=== PATIENT | female | born 1960 | race Caucasian/White ===

== ENCOUNTER 2020-01-03 14:35 | Outpatient (CLI) | payer MEDICAID ==
[2020-01-03] MEDS ORDERED: PRED10TA PO (15:42)
[2020-01-03] MEDS ORDERED: CYAN500T54 PO (15:42)
[2020-01-03] MEDS ORDERED: LISI1TAB23 PO (15:42)
[2020-01-03] MEDS ORDERED: TRAM50TA2 PO (15:42)
[2020-01-03] MEDS ORDERED: LACT1CAP37 PO (15:42)
[2020-01-03] MEDS ORDERED: METF500T17 PO (15:42)
[2020-01-03] MEDS ORDERED: CETI10CA PO (15:42)
[2020-01-03] MEDS ORDERED: METH500T7 PO (15:42)
[2020-01-03] MEDS ORDERED: ICOS1CAP PO (15:42)
[2020-01-03] MEDS ORDERED: LEVO25TA4 PO (15:42)
[2020-01-03] MEDS ORDERED: GABA300C10 PO (15:42)
[2020-01-03] MEDS ORDERED: BIOT5TAB PO (15:42)
[2020-01-03] MEDS ORDERED: ASCO500T8 PO (15:42)
[2020-01-03] MEDS ORDERED: POTA99TA2 PO (15:42)
[2020-01-03] MEDS ORDERED: ALLO100T30 PO (15:42)
[2020-01-03] MEDS ORDERED: PARO20TA4 PO (15:42)
[2020-01-03] MEDS ORDERED: magnesium PO (15:42)
[2020-01-03] MEDS ORDERED: CIDE500T PO (15:42)
[2020-01-03] MEDS ORDERED: MV-M1TAB16 PO (15:42)
[2020-01-03] MEDS ORDERED: ALBU6.7H8 INH (15:42)
[2020-01-03] MEDS ORDERED: LYSI500T25 PO (15:42)
[2020-01-03] MEDS ORDERED: DICY20TA3 PO (15:42)
[2020-01-03] MEDS ORDERED: FLUT1DIS IH (15:42)
[2020-01-03] MEDS ORDERED: MULT-658 PO (15:42)
[2020-01-03] MEDS ORDERED: PANT40TA5 PO (15:42)
[2020-01-03] MEDS ORDERED: AMIT10TA PO (15:42)
[2020-01-03 15:59] LABS: BASOPHILS # (AUTO) 0.07 x10^3/uL (0-0.1); BASOPHILS % (AUTO) 0 % (0-1); EOSINOPHILS # (AUTO) 0.02 x10^3/uL (0-0.4); EOSINOPHILS % (AUTO) 0 % (1-7); LYMPHOCYTES # (AUTO) 2.98 x10^3/uL (1-3.4); LYMPHOCYTES % (AUTO) 19 % (22-44); MD NO; MEAN CORPUSCULAR HEMOGLOBIN 28.4 pg (27.0-34.8); MEAN CORPUSCULAR VOLUME 86.1 fL (80-100); MEAN PLATELET VOLUME 7.6 fL (7.4-10.4); MONOCYTES # (AUTO) 0.61 x10^3/uL (0.2-0.8); MONOCYTES % (AUTO) 4 % (2-9); NEUTROPHILS # (AUTO) 11.68 x10^3/uL (1.8-6.8); NEUTROPHILS % (AUTO) 76 % (42-75); PLATELET COUNT 600 x10^3/uL (130-400); RED BLOOD COUNT 5.06 x10^6/uL (3.82-5.3)
[2020-01-03 16:08] LABS: ALANINE AMINOTRANSFERASE 64 U/L (12-78); ALBUMIN 3.6 g/dL (3.4-5.0); ANION GAP 7 mmol/L (5-15); CALCIUM 10.1 mg/dL (8.5-10.1); CHLORIDE 104 mmol/L (98-107); CREATININE 0.95 mg/dL (0.55-1.02)
[2020-01-03 16:10] LABS: ALKALINE PHOSPHATASE 104 U/L (45-117); BILIRUBIN,TOTAL 0.3 mg/dL (0.2-1.0)
[2020-01-03 16:10] LABS: MICROSCOPIC NOT IND
[2020-01-03 16:22] LABS: INTERNATIONAL NORMALIZED RATIO 0.94 (0.93-1.1)
[2020-01-03 16:37] LABS: CULTURE INDICATED? NO
== END 2020-01-03 23:59 | disposition home or self-care (01) ==
LOC: STAR 14:35
PROVIDERS: ATTEND Neurological Surgery
DX: Z01.818 Encounter for other preprocedural examination (principal); M47.12 Other spondylosis with myelopathy, cervical region; M54.2 Cervicalgia; J98.11 Atelectasis; S13.150A Subluxation of C4/C5 cervical vertebrae, initial encounter; M47.812 Spondylosis without myelopathy or radiculopathy, cervical region; M25.78 Osteophyte, vertebrae; M48.02 Spinal stenosis, cervical region; X58.XXXA Exposure to other specified factors, initial encounter; Y93.89 Activity, other specified; Y92.89 Other specified places as the place of occurrence of the external cause; Y99.8 Other external cause status
CPT/HCPCS: 36415; 71046; 72050; 80053; 81003; 85025; 85610; 85730; 93005; U0001

== ENCOUNTER 2020-01-07 05:24 | Inpatient (IN) | payer MEDICAID ==
[~2020-01-07] VITALS: Ht 180.3 cm; Wt 154.1 kg
[2020-01-07] VITALS (7 sets, daily range): BP systolic 134–173; BP diastolic 82–98
[~2020-01-07 05:24] MED LIST: ALBU6.7H8 INH; ALLO100T30 PO; AMIT10TA PO; ASCO500T8 PO; BIOT5TAB PO; CETI10CA PO; CIDE500T PO; CYAN500T54 PO; DICY20TA3 PO; FLUT1DIS IH; GABA300C10 PO; ICOS1CAP PO; LACT1CAP37 PO; LEVO25TA4 PO; LISI1TAB23 PO; LYSI500T25 PO; METF500T17 PO; METH500T7 PO; MULT-658 PO; MV-M1TAB16 PO; PANT40TA5 PO; PARO20TA4 PO; POTA99TA2 PO; PRED10TA PO; TRAM50TA2 PO; magnesium PO
[2020-01-07] MEDS ORDERED: LACTATED RINGERS 1,000 ML IV SCH (05:43)
[2020-01-07] MEDS ORDERED: CHLORHEXIDINE 15 ML UDC MM ONE (06:00)
[2020-01-07] MEDS ORDERED: LIDOCAINE-MPF 1%, 2ML INFIL ONE (06:00)
[2020-01-07] MEDS ORDERED: BACITRACIN 50,000 UNIT ONE (07:02)
[2020-01-07] MEDS ORDERED: BUPIVACAINE/PF-EPI 0.5% 1:200K ONE (07:02)
[2020-01-07] MEDS ORDERED: FENTANYL PF 250 MCG/5ML ONE (07:11)
[2020-01-07] MEDS ORDERED: MIDAZOLAM 1 MG/ML, 2ML ONE (07:12)
[2020-01-07] MEDS ORDERED: PROPOFOL 50 ML ONE ×4 (07:18→09:19)
[2020-01-07] MEDS ORDERED: MAGNESIUM SULFATE 1 GM/2 ML ONE (07:29)
[2020-01-07] MEDS ORDERED: KETAMINE 10 MG/ML, 20ML ONE (07:29)
[2020-01-07] MEDS ORDERED: DEXAMETHASONE 4 MG/ML, 1ML ONE (07:31)
[2020-01-07] MEDS ORDERED: ROCURONIUM 10MG/ML,5ML ONE (07:31)
[2020-01-07] MEDS ORDERED: CEFAZOLIN 1,000 MG ONE (07:31)
[2020-01-07] MEDS ORDERED: LIDOCAINE-MPF 2% ,5ML ONE (07:31)
[2020-01-07] MEDS ORDERED: SUCCINYLCHOLINE 20 MG/ML, 10ML ONE (07:31)
[2020-01-07] MEDS ORDERED: ONDANSETRON 2MG/ML, 2ML IV PRN ×2 (08:30→12:30)
[2020-01-07] MEDS ORDERED: METOCLOPRAMIDE 5 MG/ML, 2ML IV PRN (08:30)
[2020-01-07] MEDS ORDERED: LABETALOL 5MG/ML, 20ML IV PRN (08:30)
[2020-01-07] MEDS ORDERED: LORazepam 2 MG/ML, 1ML IVPush PRN (08:30)
[2020-01-07] MEDS ORDERED: ACETAMINOPHEN 325 MG TABLET PO PRN (08:30)
[2020-01-07] MEDS ORDERED: ALBUTEROL/IPRATROPIUM 2.5MG/0.5MG, 3 ML NPPB PRN (08:30)
[2020-01-07] MEDS ORDERED: MEPERIDINE/PF 25MG/ML,1ML IVPush PRN (08:30)
[2020-01-07] MEDS ORDERED: FENTANYL PF 100 MCG/2ML ONE ×2 (09:42→11:34)
[2020-01-07] MEDS ORDERED: HYDROmorphone 1 MG/ML, 1ML INJ ONE (09:42)
[2020-01-07] MEDS: FENTANYL PF 100 MCG/2ML IV PRN ×5 (10:10→11:43)
[2020-01-07] MEDS: GABAPENTIN 300 MG CAPSULE PO SCH ×3 (10:15→21:04)
[2020-01-07] MEDS ORDERED: hydrALAzine 20 MG/ML, 1ML ONE (10:24)
[2020-01-07] MEDS: hydrALAzine 20 MG/ML, 1ML IV PRN ×2 (10:26→11:04)
[2020-01-07] MEDS ORDERED: METHOCARBAMOL 1,000 MG in DEXTROSE 5% 100 ML IV ONE (10:30)
[2020-01-07] MEDS ORDERED: LABETALOL 5MG/ML, 20ML ONE (11:23)
[2020-01-07] MEDS ORDERED: ACETAMINOPHEN 500 MG TABLET PO PRN (12:30)
[2020-01-07] MEDS ORDERED: BISACODYL 10 MG SUPP PR PRN (12:30)
[2020-01-07] MEDS ORDERED: DIPHENHYDRAMINE 50 MG/ML, 1ML IVPush PRN (12:30)
[2020-01-07] MEDS ORDERED: DIPHENHYDRAMINE 25 MG CAPSULE PO PRN (12:30)
[2020-01-07] MEDS ORDERED: ALBUTEROL SULFATE 2.5 MG/3 ML NPPB PRN ×3 (12:30→14:30)
[2020-01-07] MEDS ORDERED: DIPHENHYDRAMINE 50 MG/ML, 1ML IM PRN (12:30)
[2020-01-07] MEDS ORDERED: MAGNESIUM HYDROXIDE 8%, 30ML UDC PO PRN (12:30)
[2020-01-07] MEDS ORDERED: ACETAMINOPHEN 650 MG SUPP PR PRN (12:30)
[2020-01-07] MEDS: NS + 20MEQ KCL 1,000 ML IV SCH (13:34)
[2020-01-07] MEDS: CEFAZOLIN PMX 1GM/50ML 50 ML IVPB SCH (16:13)
[2020-01-07] MEDS: DICYCLOMINE 20 MG TABLET PO SCH ×2 (16:14→21:04)
[2020-01-07] MEDS: metFORMIN 500 MG TABLET PO SCH (16:14)
[2020-01-07] MEDS: METHOCARBAMOL 750 MG TABLET PO SCH (18:28)
[2020-01-07] MEDS: ADVAIR INH SCH (21:00)
[2020-01-07] MEDS ORDERED: CETIRIZINE 10 MG TABLET PO SCH (21:00)
[2020-01-07] MEDS ORDERED: BUDESONIDE 0.5 MG/2 ML INHA NPPB SCH (21:00)
[2020-01-07] MEDS ORDERED: AMITRIPTYLINE 10 MG TABLET PO SCH (21:00)
[2020-01-07] MEDS ORDERED: PAROXETINE 20 MG TABLET PO SCH (21:00)
[2020-01-07] MEDS: ASCORBIC ACID 500 MG TABLET PO SCH (21:04)
[2020-01-07] MEDS: PANTOPRAZOLE 40MG TABLET PO SCH (21:05)
[2020-01-07] MEDS: OMEGA-3/FISH OIL CAPSULE PO SCH (21:05)
[2020-01-07] MEDS: MAGNESIUM OXIDE 400 MG TABLET PO SCH (21:05)
[2020-01-08] MEDS: CEFAZOLIN PMX 1GM/50ML 50 ML IVPB SCH (00:21)
[2020-01-08] MEDS: NS + 20MEQ KCL 1,000 ML IV SCH (02:25)
[2020-01-08] MEDS: METHOCARBAMOL 750 MG TABLET PO SCH (02:45)
[2020-01-08 03:37] VITALS: BP 162/82
[2020-01-08] MEDS ORDERED: LEVOTHYROXINE 50 MCG TABLET PO SCH (06:00)
[2020-01-08 07:19] VITALS: BP 162/87
[2020-01-08] MEDS: metFORMIN 500 MG TABLET PO SCH (07:37)
[2020-01-08] MEDS ORDERED: LACTOBACILLUS CHEW TABLET PO SCH (09:00)
[2020-01-08] MEDS ORDERED: HYDROCHLOROTHIAZIDE 12.5 MG CAPSULE PO SCH (09:00)
[2020-01-08] MEDS ORDERED: CYANOCOBALAMIN 1,000 MCG TABLET PO SCH (09:00)
[2020-01-08] MEDS ORDERED: SENNA/DOCUSATE TABLET PO SCH (09:00)
[2020-01-08] MEDS ORDERED: LISINOPRIL 10 MG TABLET PO SCH (09:00)
[2020-01-08] MEDS ORDERED: ALLOPURINOL 100 MG TABLET PO SCH (09:00)
[2020-01-08] MEDS ORDERED: MULTIVITAMIN 1 TABLET PO SCH (09:00)
[2020-01-08] MEDS: MAGNESIUM OXIDE 400 MG TABLET PO SCH (09:03)
[2020-01-08] MEDS: OMEGA-3/FISH OIL CAPSULE PO SCH (09:03)
[2020-01-08] MEDS: ASCORBIC ACID 500 MG TABLET PO SCH (09:03)
[2020-01-08] MEDS: PANTOPRAZOLE 40MG TABLET PO SCH (09:03)
[2020-01-08] MEDS: DICYCLOMINE 20 MG TABLET PO SCH (09:03)
[2020-01-08] MEDS: GABAPENTIN 300 MG CAPSULE PO SCH (09:04)
[2020-01-08] MEDS: ADVAIR INH SCH (09:04)
[2020-01-08] MEDS ORDERED: ENOXAPARIN 40 MG/0.4 ML SQ SCH (10:00)
== END 2020-01-08 10:30 | disposition home or self-care (01) | DRG 321 ==
LOC: ORIP 05:24 → 4NE 12:08
PROVIDERS: ADMIT Neurological Surgery; ATTEND Neurological Surgery
PROC: 00NW0ZZ Release Cervical Spinal Cord, Open Approach (ICD-10-PCS; 2020-01-07)
PROC: 0RB30ZZ Excision of Cervical Vertebral Disc, Open Approach (ICD-10-PCS; 2020-01-07)
PROC: 01N10ZZ Release Cervical Nerve, Open Approach (ICD-10-PCS; 2020-01-07)
PROC: 4A11X4G Monitoring of Peripheral Nervous Electrical Activity, Intraoperative, External Approach (ICD-10-PCS; 2020-01-07)
PROC: 0RG10A0 Fusion of Cervical Vertebral Joint with Interbody Fusion Device, Anterior Approach, Anterior Column, Open Approach (ICD-10-PCS; principal; 2020-01-07 07:30)
DX: M47.12 Other spondylosis with myelopathy, cervical region (principal); E66.01 Morbid (severe) obesity due to excess calories; M50.022 Cervical disc disorder at C5-C6 level with myelopathy; R13.10 Dysphagia, unspecified; Z68.42 Body mass index [BMI] 45.0-49.9, adult; M47.22 Other spondylosis with radiculopathy, cervical region; M48.02 Spinal stenosis, cervical region; M50.122 Cervical disc disorder at C5-C6 level with radiculopathy; Z88.8 Allergy status to other drugs, medicaments and biological substances
CPT/HCPCS: 72040; 82962; 95938; 95941; C1713; G0378; J0690; J1100; J2250; J2704; J3010; J3475; J3480; C1762; C1889; J0330; J0360; J2800; J7120